=== PATIENT | male | born 1975 | race African-American/Black ===

== ENCOUNTER 2020-02-13 18:38 | Emergency (ER) | payer MEDICAID ==
[~2020-02-13] VITALS: Ht 185.4 cm; Wt 108.9 kg
[2020-02-13 18:47] VITALS: Ht 185.4 cm; Wt 108.9 kg
[2020-02-14 02:04] LABS: AMPHETAMINE QUAL UR POSITIVE (See below)
[2020-02-14 03:36] VITALS: BP 142/90
== END 2020-02-14 07:05 | disposition home or self-care (01) ==
LOC: ED 18:38
PROVIDERS: Emergency Medicine
DX: S80.812A Abrasion, left lower leg, initial encounter (principal); Z88.0 Allergy status to penicillin; V09.9XXA Pedestrian injured in unspecified transport accident, initial encounter; Y93.89 Activity, other specified; Y92.89 Other specified places as the place of occurrence of the external cause; Y99.8 Other external cause status
CPT/HCPCS: G0480

== ENCOUNTER 2020-09-22 18:31 | Emergency (ER) | payer MEDICAID ==
[~2020-09-22] VITALS: Ht 185.4 cm; Wt 112.9 kg
[2020-09-22 18:42] VITALS: BP 138/74; Ht 185.4 cm; Wt 112.9 kg
== END 2020-09-22 20:06 | disposition home or self-care (01) ==
LOC: ED 18:31
DX: S93.402A Sprain of unspecified ligament of left ankle, initial encounter (principal); F17.210 Nicotine dependence, cigarettes, uncomplicated; Z88.0 Allergy status to penicillin; W22.8XXA Striking against or struck by other objects, initial encounter; Y93.89 Activity, other specified; Y92.89 Other specified places as the place of occurrence of the external cause; Y99.8 Other external cause status